=== PATIENT | male | born 2000 | race Caucasian/White ===

== ENCOUNTER 2022-03-05 20:04 | Emergency (ER) | payer BC ==
[2022-03-05] MEDS ORDERED: Ketorolac 60 MG/2 ML SDV IM ONE (20:24)
== END 2022-03-05 21:20 | disposition home or self-care (01) ==
LOC: JD.ED 20:04
DX: S80.01XA Contusion of right knee, initial encounter (principal); F17.210 Nicotine dependence, cigarettes, uncomplicated; V80.018A Animal-rider injured by fall from or being thrown from other animal in noncollision accident, initial encounter
CPT/HCPCS: 73564; 96372; 99283; J1885; 99282

== ENCOUNTER → 2022-07-11 | Day surgery (SDC) | payer BC ==
[~2022-07-11] MED LIST: Acetaminophen/HYDROcodone 325-5 MG Tab ONE; Acetaminophen/HYDROcodone 325-5 MG Tab PO ONE; Albuterol 0.083% 2.5 MG/3 ML Neb Soln INH ONE; Albuterol 0.083% 2.5 MG/3 ML Neb Soln ONE; Bupivacaine 0.25% 10 ML SDV ONE; Dexamethasone 4 MG/ML 5 ML MDV ONE; EPINEPHrine 1 MG/ML 30 ML MDV IV ONE; Ketorolac 30 MG/ML SDV ONE; Lactated Ringers 1,000 ML IV ONE; Lidocaine 1% 5 ML VIAL ONE; Lidocaine 1%/Sod Bicarbonate in NS 8.4% 1 ML Syringe IDERM ONE; Midazolam 1 MG/ML 2 ML SDV ONE; Ondansetron 4 MG/2 ML SDV ONE; Propofol 200 MG/20 ML SDV ONE; ceFAZolin 2 GM Vial ONE; fentaNYL 100 MCG/2 ML SDV ONE
== END ==
LOC: JD.SDS 06:00
PROVIDERS: ATTEND Orthopaedic Surgery
DX: S83.241A Other tear of medial meniscus, current injury, right knee, initial encounter (principal); Z98.890 Other specified postprocedural states; R04.0 Epistaxis
CPT/HCPCS: 29881; A9270; J0171; J0690; J1100; J1885; J2250; J2405; J2704; J3010; J3490; J7120; 01400